=== PATIENT | male | born 1975 | race Caucasian/White ===

== ENCOUNTER → 2019-02-22 | Day surgery (SDC) | payer OTHER ==
[~2019-02-22] MED LIST: ACETAMINOPHEN 1000 MG/100 ML IV ONE; BUPIVACAINE 0.25% 30ML SDV INJ ONE; CEFAZOLIN SOD 1 GM/NS 50ML 100 ML IV ONE; DEXAMETHASONE SOD PHOS INJ 4 MG/ML VIAL ONE; FENTANYL CITRATE/PF 100MCG/2 ML INJ ONE; HYDROMORPHONE 2MG/ML 2 MG/ML ML ONE; LIDOCAINE 1% W/EPINEPHRINE 20 ML VIAL ONE; LIDOCAINE 2% /EPINEPHRINE 20 ML SDV INJ ONE; LIDOCAINE HCL 2% LOCAL INJ 5 ML SDV VIAL INJ ONE; MIDAZOLAM HCL 2 MG/2 ML VIAL ONE; MULTI-VITAMIN1 EACH PO; ONDANSETRON HCL INJ 2MG/ML 2ML 2 MG/ML VIAL ONE; PEPTO-BISMOL262 M1 PO; PROPOFOL IV EMULSION 10 MG/ML 20 ML VIAL ONE; ROPIVACAINE 0.5% 5 MG/ML 30 ML SDV ONE; SEVOFLURANE INHAL SOLN 250 ML PEN BTL ONE; UNISOM SLEEP AI25 MG PO
--- OUTSIDE RECORDS SUMMARY | 2019-02-22 07:00 | XMS REPORT ---
Author Author [facility] Address Unknown Phone Unavailable Care Team Providers Care Bufferer Name Role Phone Unavailable Unavailable Payers Payer Name Policy Type Policy Number Effective Date Expiration Date Problems This patient has no known problems. Allergies, Adverse Reactions, Alerts Allergy Name Allergy Type Status Severity Reaction(s) Onset Date Inactive Date Treating Clinician Comments DHEERAJ Foster 2005-11-17 00:00:00 Medications This patient has no known medications.
[2019-02-22 13:15] VITALS: BP 123/73
--- NOTE | 2019-02-22 14:32 | NUR ---
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 SURGEON: Chiqui Calderon DO ANESTHESIA: General COMPLICATIONS: None TOURNIQUET: Applied but not inflated. No tourniquet EBL: Minimal < 5 INDICATIONS: Due to persistent pain and limitations on activity combined with findings on exam and imaging, the patient requests surgical treatment. Nonopera tive care and alternative surgical options were reviewed. We agreed that this provided the best risk/benefit profile for this patient, understanding and accepting risks of recurrent/persistent symptoms, infection, bleeding, stiffness, neurological/vascular damage, failure to improve and anesthetic complication (as reviewed by anesthesia service). Also, the patient understands that arthroscopic treatment of articular cartilage lesions provides temporary incomplete relief but that meniscal symptoms should be well addressed. FINDINGS: LEFT Knee Patella Normal Trochlea Normal Lateral Gutter - Normal Medial Gutter Normal Medial Compartment Femoral - Grade 1 Tibial - Normal Medial Meniscus - Intact, normal Cruciate region - Normal Lateral Compartment Femoral - Normal, small area of grade 2. Tibial - Normal Lateral Meniscus -Normal Synovium - mildly hypertrophic On Fluorscopy Avascular necrosis seen on medial and lateral femoral condyle PROCEDURE: With the patient in the supine position with all prominences well padded, general anesthesia was obtained. Sterile prepping and draping were performed. Antibiotics had been given and a time out performed. After an injection of 1% Lidocaine with Epinephrine in the proposed incision sites, The arthroscope was inserted via a small lateral parapatellar tendon incision into the patellofemoral space. Under direct visualization, a medial parapatellar tendon portal was created providing a working portal. Diagnostic arthroscopy was performed and the above findings were noted.Within the patellofemoral space, normal findings except for mildly hypertrophic synovitis was noted Within the medial compartment, the medial meniscus was found to be normal. The medial femoral condyle was carefully examined for significant loose chondral fragments. Loose chondral fraying was debrided to establish a stable boundry. Within the intercondylar space, the ACL was visualized and intact. The lateral compartment demonstrated a friable and frayed medial region of the lateral femoral condyle without significant loose chondral flap. This was debrid ed. Otherwise the cartilage and meniscus was unremarkable. This was debrided with an arthroscopic shaver Under flouroscopic visualization, the subchondroplasty drill was used to provide a thorough decompression through the areas of AVN on the medial and lateral femoral condyle. 9 cc of Bone Mimetic was carefully injected into the me dial femoral condyle throughout the are of AVN. This blush was seen on flouroscopic. 5 cc of Bone mimetic was carefully injected through the lateral femoral condyle in the areas of AVN after a careful decompression. Final images were obtained demonstrating an adequate blush in the appropriate areas. The cannulas were removed each time after appropriate of time to ensure hardening of the mimetic. The knee was scoped again to remove any intraarticular extravasation of the bone mimetic. After careful evaluation and debridement, the knee was found to b e clean. The joint was extravasated and .25% marcaine was injected into the knee. The incisions were closed and more local was injected around the portal sites. Steristrips, Xeroform, 4x4s, ABDs and a compressive DELILAH bandage were applied. A brace was applied. The patient was awakened and transferred to the PACU in sat isfactory condition having tolerated the procedure well.
== END | disposition home or self-care (01) ==
LOC: OR 06:49
PROVIDERS: ATTEND Orthopaedic Surgery
DX: M87.852 Other osteonecrosis, left femur (principal); M89.762 Major osseous defect, left lower leg; Z72.0 Tobacco use; Z01.810 Encounter for preprocedural cardiovascular examination; M94.262 Chondromalacia, left knee
CPT/HCPCS: 27599; 93005; J0131; J0690; J1100; J1170; J2001 ×2; J2250; J2405; J2704; J2795; J3010